=== PATIENT | male | born 2005 ===

== ENCOUNTER 2024-08-23 21:29 | Emergency (ER) | payer SELFPAY ==
[~2024-08-23] VITALS: Ht 182.9 cm; Wt 83.9 kg
[2024-08-23] MEDS ORDERED: AMOX-427 PO (22:04)
[2024-08-23] MEDS: DIPH,PERTUSS(ACELL),TET VAC/PF 0.5 ML VIAL IM ONE (22:16)
[2024-08-23 22:19] VITALS: BP 122/73; PULSE 74; RESP 16; TEMP 98.6; O2SAT 99
== END 2024-08-23 22:20 | disposition home or self-care (01) ==
LOC: EDH 21:29
DX: S81.011A Laceration without foreign body, right knee, initial encounter (principal); W54.0XXA Bitten by dog, initial encounter; Y93.89 Activity, other specified; Y92.89 Other specified places as the place of occurrence of the external cause; Y99.8 Other external cause status
CPT/HCPCS: 90471; 90715